=== PATIENT | male | born 1950 | race Caucasian/White ===

== ENCOUNTER 2016-04-16 08:45 | Emergency (ER) | payer OTHER | END 2016-04-16 11:28 | disposition home or self-care (01) | DX: R51 Headache (principal); I10 Essential (primary) hypertension; E78.00 Pure hypercholesterolemia, unspecified; I25.2 Old myocardial infarction ==

== ENCOUNTER 2016-04-18 | Emergency (ER) | payer OTHER | END 2016-04-18 14:32 | disposition home or self-care (01) ==

== ENCOUNTER 2018-12-28 15:23 | Emergency (ER) | payer MEDICARE, OTHER ==
[2018-12-28 15:38] VITALS: BP 151/92
--- NOTE | 2018-12-28 15:46 | ED Physician Documentation ---
PD HPI UPPER EXT INJURY - Stated complaint Stated Complaint: RT ELBOW AND FORARM PX - Chief complaint Chief Complaint: Trauma Ext - History obtained from History obtained from: Patient - History of Present Illness Location: Right, Elbow Type of injury: Blunt / blow (He was carrying a washing machine on a hand truck into his house and the machine shifted weight and he fell forward and caught himself with his right hand against the door jam. He felt an abrupt pop feeling with some pain in the right medial elbow. He does have range of motion of the elbow but hurts with full extension and rotational movement.) Where injury occurred: Home Worsened by: Moving, Palpating (medial condyle area) Associated symptoms: No: Weakness, Numbness Similar symptoms before: Has not had sx before Review of Systems Skin: denies: Rash, Lesions Musculoskeletal: denies: Neck pain, Back pain Neurologic: denies: Focal weakness, Numbness PD PAST MEDICAL HISTORY - Past Medical History Cardiovascular: Hypertension, High cholesterol, ID Respiratory: Other Endocrine/Autoimmune: None GI: None : None HEENT: Chronic vision loss Psych: None Musculoskeletal: Other Derm: None - Past Surgical History Past Surgical History: Yes General: Colonoscopy HEENT: Tonsil/Adenoidectomy - Present Medications Home Medications: Ambulatory Orders Medication Instructions Recorded Confirmed Fluticasone [Flonase] 1 sprays GENI BID PRN #1 bottle 04/16/16 Acyclovir 800 mg PO 5XD 10 Days tablet 04/18/16 HYDROcod/ACETAM 5/325 [[place] 5/325] 1 - 2 ea PO Q6H PRN #15 tablet 04/18/16 Trifluridine [Viroptic] 1 drops LEFTEYE Q3HR #1 bot 04/18/16 predniSONE [Deltasone] 20 mg PO [id number] #21 tab 04/18/16 - Allergies Allergies/Adverse Reactions: Allergies Allergy/AdvReac Type Severity Reaction Status Date / Time No Known Drug Allergies Allergy Verified 12/28/18 15:36 - Social History Does the pt smoke?: No Smoking Status: Never smoker Does the pt drink ETOH?: No Does the pt have substance abuse?: No - Immunizations Immunizations are current?: Yes - POLST Patient has POLST: No PD ED PE NORMAL - Vitals Vital signs reviewed: Yes - General General: Alert and oriented X 3, No acute distress, Well developed/nourished - Derm Derm: Normal color, Warm and dry, No rash - Extremities Extremities: Other (right elbow with good ROM, with some pain medially on extension. Not tender at radial head and he can supinate/pronate without pain. No effusion. Medial condyle and just distal are tender. separate elbow and forearm/wrist movements are strong. ) - Neuro Neuro: No motor deficit, No sensory deficit Results - Vitals Vitals: Oxygen O2 Source Room air - Rads (name of study) right elbow Radiology: Prelim report reviewed (no fractures), See rad report PD MEDICAL DECISION MAKING - ED course Complexity details: reviewed results (muscle strain. no fractures. Not concerning for radial head. ), considered differential, d/w patient Departure - Departure Disposition: 01 Home, Self Care Clinical Impression: Strain of elbow Qualifiers: Encounter type: initial encounter Laterality: right Qualified Code(s): S46.911A - Strain of unspecified muscle, fascia and tendon at shoulder and upper arm level, right arm, initial encounter Condition: Stable Record reviewed to determine appropriate education?: Yes Instructions: ED Sprain Elbow Comments: Your x-ray appears normal. Your major muscle tendons feel intact on your exam. Presume there is some strain of the ligaments may be some small muscle fiber injury. This should heal well over the next several days to week. Gentle range of motion and limited lifting and use based on comfort. Tylenol ibuprofen if needed for pains. Recheck if not improved over a week or so. Discharge Date/Time: 12/28/18 16:18
--- NOTE | 2018-12-28 16:10 | XRAY Report ---
Reason: fall Procedure Date: 12/28/2018 Accession Number: [id number] / [id number] Procedure: XR - Elbow 3 View RT CPT Code: Final Report FULL RESULT: EXAM: RIGHT ELBOW RADIOGRAPHY EXAM DATE: 12/28/2018 03:38 PM. CLINICAL HISTORY: Fall. COMPARISON: None. TECHNIQUE: 3 views. FINDINGS: Bones: Normal. No fractures or bone lesions. Joints: Normal. No effusion. No subluxation. Soft Tissues: Normal. No soft tissue swelling. IMPRESSION: Normal elbow radiography. No acute fracture or malalignment. No elbow joint effusion. [facility]
== END 2018-12-28 16:18 | disposition home or self-care (01) ==
LOC: ED 15:23
DX: S46.911A Strain of unspecified muscle, fascia and tendon at shoulder and upper arm level, right arm, initial encounter (principal); W01.198A Fall on same level from slipping, tripping and stumbling with subsequent striking against other object, initial encounter; Y93.89 Activity, other specified; Y92.008 Other place in unspecified non-institutional (private) residence as the place of occurrence of the external cause; I10 Essential (primary) hypertension
CPT/HCPCS: 99282; 99283